=== PATIENT | female | born 1990 | race Two or more races ===

== ENCOUNTER 2019-07-14 04:03 | Inpatient (IN) | payer OTHER, SELFPAY ==
[~2019-07-14] VITALS: Ht 157.5 cm; Wt 53.1 kg
--- NOTE | 2019-07-14 04:10 | NUR ---
PT TOO TREMULOUS IN TRIAGE FOR EKG
[2019-07-14] MEDS ORDERED: LORazepam 2 MG/ML, 1ML ONE (04:18)
[2019-07-14] MEDS ORDERED: ONDANSETRON 2MG/ML, 2ML ONE (04:18)
--- NOTE | 2019-07-14 04:28 | NUR ---
Pt presents to ed c/o "im just not feeling well, i think i have alcohol poisoning or something." Pt c/o diffuse abd pain and nausea. States she drinks approximately 1/2 a pint a day of hard etoh. Pt denies any blood in stool or in emesis. Denies any relevent med hx. All monitoring applied. Iv initiated and medicated per nov.
[2019-07-14] MEDS ORDERED: SODIUM CHLORIDE 0.9% 1,000ML IVBOLUS ONE ×2 (04:30→05:30)
[2019-07-14] MEDS ORDERED: LORazepam 2 MG/ML, 1ML IVPush ONE ×2 (04:30→05:00)
[2019-07-14] MEDS ORDERED: ONDANSETRON 2MG/ML, 2ML IVPush ONE (04:30)
[2019-07-14 04:56] LABS: MEAN CORPUSCULAR HEMOGLOBIN 32.5 pg (27.0-34.8); MEAN CORPUSCULAR HGB CONC 32.4 g/dL (32.4-35.8); MEAN CORPUSCULAR VOLUME 100.2 fL (80-100); MEAN PLATELET VOLUME 9.3 fL (7.4-10.4); PLATELET COUNT 301 x10^3/uL (130-400); RED BLOOD COUNT 4.54 x10^6/uL (3.82-5.3); RED CELL DISTRIBUTION WIDTH 14.2 % (9.6-15.2)
[2019-07-14 05:07] LABS: ALBUMIN 4.6 g/dL (3.4-5.0); CALCIUM 8.7 mg/dL (8.5-10.1); CHLORIDE 103 mmol/L (98-107)
[2019-07-14 05:10] LABS: ALANINE AMINOTRANSFERASE 91 U/L (12-78); SALICYLATE LEVEL 2.1 mg/dL (2.8-20.0)
[2019-07-14 05:12] LABS: ALKALINE PHOSPHATASE 104 U/L (45-117); BILIRUBIN,TOTAL 0.6 mg/dL (0.2-1.0); TOTAL PROTEIN 9.4 g/dL (6.4-8.2)
[2019-07-14 05:17] LABS: ANION GAP 22 mmol/L (5-15)
[2019-07-14 05:41] LABS: BASOPHILS % (AUTO) 0 % (0-1); EOSINOPHILS # (AUTO) 0.01 x10^3/uL (0-0.4); EOSINOPHILS % (AUTO) 0 % (1-7); LYMPHOCYTES # (AUTO) 0.38 x10^3/uL (1-3.4); LYMPHOCYTES % (AUTO) 2 % (22-44); MD SCAN; MONOCYTES # (AUTO) 0.23 x10^3/uL (0.2-0.8); MONOCYTES % (AUTO) 1 % (2-9); NEUTROPHILS # (AUTO) 22.81 x10^3/uL (1.8-6.8); NEUTROPHILS % (AUTO) 97 % (42-75)
--- NOTE | 2019-07-14 05:54 | NUR ---
Pt prompted for ua. States not able to at this time. No other immediate needs.
[2019-07-14] MEDS ORDERED: CEFTRIAXONE PMX 1GM/50ML 50 ML ONE (06:16)
[2019-07-14] MEDS ORDERED: CEFTRIAXONE PMX 1GM/50ML 50 ML IV ONE (06:30)
[2019-07-14] MEDS ORDERED: OMNIPAQUE 350 MG/ML, 100ML BOTTLE ONE (06:45)
[2019-07-14 06:46] LABS: MICROSCOPIC AUTO
[2019-07-14 06:47] LABS: CULTURE INDICATED? YES
--- NOTE | 2019-07-14 06:52 | NUR ---
Pt report to Ольга stallworth.
[2019-07-14 06:53] LABS: AMPHETAMINE SCREEN, URINE Negative (Negative); BARBITURATE SCREEN, URINE Negative (Negative); BENZODIAZEPINE SCREEN, URINE Negative (Negative); CANNABINOID SCREEN, URINE Negative (Negative); COCAINE SCREEN, URINE Negative (Negative); METHADONE SCREEN, URINE Negative (Negative); OPIATE SCREEN, URINE Negative (Negative)
--- NOTE | 2019-07-14 07:04 | NUR ---
REPORT TAKEN FROM CHAU DOVE. PT RESTING ON VICTOR MANUEL. LUPIS. VSS. MEDICATED PER EMAR. DENIES NEEDS. CALL LIGHT IN REACH.
[2019-07-14] MEDS: THIAMINE 100 MG in SODIUM CHLORIDE 0.9% 50 ML IV SCH (07:05)
[2019-07-14 07:11] LABS: ACETONE, SERUM Large (80mg/dL) mg/dL (Negative)
[2019-07-14] MEDS ORDERED: D5%-0.45% NACL 1,000 ML IV ONE (07:30)
[2019-07-14] MEDS ORDERED: SODIUM CHLORIDE FLUSH 10ML SYR IVF PRN (07:30)
[2019-07-14 07:40] VITALS: BP 167/55
--- NOTE | 2019-07-14 07:43 | NUR ---
PT MEDICATED PER EMAR. RESTING ON GURNEY. NADN. EKG PERFORMED. VSS.
--- NOTE | 2019-07-14 08:05 | NUR ---
REPORT GIVEN TO CHAU YOUNG.
[2019-07-14 08:55] VITALS: BP 134/90
[2019-07-14] MEDS ORDERED: LORazepam 2 MG/ML, 1ML IV PRN ×5 (10:00)
[2019-07-14] MEDS ORDERED: LORazepam 1MG TABLET PO PRN ×2 (10:00)
[2019-07-14] MEDS ORDERED: LORazepam 0.5MG TABLET PO PRN (10:00)
[2019-07-14 11:28] VITALS: BP 117/80
[2019-07-14] MEDS: SODIUM BICARBONATE 8.4% 100 MEQ in DEXTROSE 5% 1,000 ML IV SCH ×2 (11:31→18:17)
[2019-07-14] MEDS ORDERED: ONDANSETRON 2MG/ML, 2ML IVPush PRN (12:30)
[2019-07-14] MEDS ORDERED: LABETALOL 5MG/ML, 20ML IVPush PRN (12:30)
[2019-07-14] MEDS ORDERED: ONDANSETRON ODT 4 MG PO PRN (12:30)
[2019-07-14] MEDS: POTASSIUM CHLORIDE 20 MEQ, MAGNESIUM SULFATE 1 GM, FOLIC ACID 1 MG, THIAMINE 200 MG, MV... IV SCH (13:01)
[2019-07-14 13:12] LABS: FREE T4 (FREE THYROXINE) 0.85 ng/dL (0.76-1.46)
[2019-07-14 13:49] VITALS: BP 121/77
[2019-07-14] MEDS ORDERED: ENOXAPARIN 30 MG/0.3 ML SQ SCH (17:30)
[2019-07-14 18:18] VITALS: BP 101/65
[2019-07-14 19:27] VITALS: BP 106/68
[2019-07-14 21:55] LABS: ANION GAP 6 mmol/L (5-15); CALCIUM 8.3 mg/dL (8.5-10.1); CHLORIDE 104 mmol/L (98-107)
[2019-07-14 22:07] LABS: MEAN CORPUSCULAR HEMOGLOBIN 32.3 pg (27.0-34.8); MEAN CORPUSCULAR HGB CONC 33.3 g/dL (32.4-35.8); MEAN CORPUSCULAR VOLUME 96.8 fL (80-100); MEAN PLATELET VOLUME 8.8 fL (7.4-10.4); PLATELET COUNT 168 x10^3/uL (130-400); RED BLOOD COUNT 3.59 x10^6/uL (3.82-5.3); RED CELL DISTRIBUTION WIDTH 14.5 % (9.6-15.2)
[2019-07-14 22:35] LABS: BASOPHILS # (AUTO) 0.02 x10^3/uL (0-0.1); BASOPHILS % (AUTO) 0 % (0-1); EOSINOPHILS % (AUTO) 0 % (1-7); LYMPHOCYTES # (AUTO) 0.69 x10^3/uL (1-3.4); LYMPHOCYTES % (AUTO) 10 % (22-44); MD SCAN; MONOCYTES # (AUTO) 0.27 x10^3/uL (0.2-0.8); MONOCYTES % (AUTO) 4 % (2-9); NEUTROPHILS # (AUTO) 6.24 x10^3/uL (1.8-6.8); NEUTROPHILS % (AUTO) 87 % (42-75)
[2019-07-15 01:07] VITALS: BP 102/65
[2019-07-15] MEDS: SODIUM BICARBONATE 8.4% 100 MEQ in DEXTROSE 5% 1,000 ML IV SCH (02:19)
[2019-07-15 05:16] LABS: ALBUMIN 3.4 g/dL (3.4-5.0); ANION GAP 7 mmol/L (5-15); CHLORIDE 102 mmol/L (98-107)
[2019-07-15 05:18] LABS: BASOPHILS # (AUTO) 0.01 x10^3/uL (0-0.1); BASOPHILS % (AUTO) 0 % (0-1); EOSINOPHILS # (AUTO) 0.03 x10^3/uL (0-0.4); EOSINOPHILS % (AUTO) 1 % (1-7); LYMPHOCYTES # (AUTO) 1.02 x10^3/uL (1-3.4); LYMPHOCYTES % (AUTO) 18 % (22-44); MD NO; MEAN CORPUSCULAR HEMOGLOBIN 32.8 pg (27.0-34.8); MEAN CORPUSCULAR HGB CONC 33.9 g/dL (32.4-35.8); MONOCYTES # (AUTO) 0.36 x10^3/uL (0.2-0.8); MONOCYTES % (AUTO) 6 % (2-9); NEUTROPHILS # (AUTO) 4.31 x10^3/uL (1.8-6.8); NEUTROPHILS % (AUTO) 75 % (42-75); PLATELET COUNT 149 x10^3/uL (130-400); RED BLOOD COUNT 3.44 x10^6/uL (3.82-5.3); RED CELL DISTRIBUTION WIDTH 14.4 % (9.6-15.2)
[2019-07-15 05:30] LABS: ALANINE AMINOTRANSFERASE 54 U/L (12-78); ALKALINE PHOSPHATASE 61 U/L (45-117); BILIRUBIN,TOTAL 0.6 mg/dL (0.2-1.0); CREATININE 0.61 mg/dL (0.55-1.02); TOTAL PROTEIN 6.4 g/dL (6.4-8.2)
[2019-07-15] MEDS ORDERED: POTASSIUM CHLORIDE 20 MEQ TAB.ER.PRT PO ONE ×2 (06:30→11:30)
[2019-07-15] MEDS ORDERED: POTASSIUM PHOSPHATE 44 MEQ in SODIUM CHLORIDE 0.9% 500 ML IV ONE (06:30)
[2019-07-15 07:30] VITALS: BP 104/70
[2019-07-15] MEDS: THIAMINE 100 MG in SODIUM CHLORIDE 0.9% 50 ML IV SCH (10:17)
[2019-07-15] MEDS: PANTOPRAZOLE 40 MG IV IVPush SCH (10:17)
[2019-07-15] MEDS: POTASSIUM CHLORIDE 20 MEQ, MAGNESIUM SULFATE 1 GM, FOLIC ACID 1 MG, THIAMINE 200 MG, MV... IV SCH (13:04)
[2019-07-15 13:15] VITALS: BP 133/66
[2019-07-15] MEDS: ENOXAPARIN 40 MG/0.4 ML SQ SCH (17:10)
[2019-07-15 19:14] VITALS: BP 99/67
[2019-07-16 01:43] VITALS: BP 122/80
[2019-07-16 05:35] LABS: MEAN CORPUSCULAR HEMOGLOBIN 32.8 pg (27.0-34.8); MEAN CORPUSCULAR HGB CONC 33.7 g/dL (32.4-35.8); MEAN CORPUSCULAR VOLUME 97.4 fL (80-100); MEAN PLATELET VOLUME 9.3 fL (7.4-10.4); PLATELET COUNT 141 x10^3/uL (130-400); RED BLOOD COUNT 3.58 x10^6/uL (3.82-5.3); RED CELL DISTRIBUTION WIDTH 14.3 % (9.6-15.2)
[2019-07-16 05:42] LABS: CHLORIDE 106 mmol/L (98-107)
[2019-07-16 05:48] LABS: ALANINE AMINOTRANSFERASE 61 U/L (12-78); ALBUMIN 3.5 g/dL (3.4-5.0); ALKALINE PHOSPHATASE 69 U/L (45-117); ANION GAP 4 mmol/L (5-15); BILIRUBIN,TOTAL 0.6 mg/dL (0.2-1.0); CALCIUM 8.7 mg/dL (8.5-10.1); CREATININE 0.64 mg/dL (0.55-1.02); TOTAL PROTEIN 6.9 g/dL (6.4-8.2)
[2019-07-16 06:06] LABS: BASOPHILS # (AUTO) 0.03 x10^3/uL (0-0.1); BASOPHILS % (AUTO) 1 % (0-1); EOSINOPHILS # (AUTO) 0.04 x10^3/uL (0-0.4); EOSINOPHILS % (AUTO) 1 % (1-7); LYMPHOCYTES # (AUTO) 1.57 x10^3/uL (1-3.4); LYMPHOCYTES % (AUTO) 38 % (22-44); MD SCAN; MONOCYTES # (AUTO) 0.38 x10^3/uL (0.2-0.8); MONOCYTES % (AUTO) 9 % (2-9); NEUTROPHILS # (AUTO) 2.13 x10^3/uL (1.8-6.8); NEUTROPHILS % (AUTO) 51 % (42-75)
[2019-07-16] MEDS ORDERED: POTASSIUM PHOSPHATE 44 MEQ in SODIUM CHLORIDE 0.9% 500 ML IV ONE (07:30)
[2019-07-16 07:40] VITALS: BP 133/92
[2019-07-16] MEDS: PANTOPRAZOLE 40 MG IV IVPush SCH (08:17)
[2019-07-16 14:00] VITALS: BP 105/71
[2019-07-16] MEDS: POTASSIUM CHLORIDE 20 MEQ, MAGNESIUM SULFATE 1 GM, FOLIC ACID 1 MG, THIAMINE 200 MG, MV... IV SCH (17:02)
[2019-07-16] MEDS: ENOXAPARIN 40 MG/0.4 ML SQ SCH (17:04)
[2019-07-16 20:09] VITALS: BP 115/78
[2019-07-17 01:30] VITALS: BP 118/86
[2019-07-17 06:46] LABS: BASOPHILS # (AUTO) 0.03 x10^3/uL (0-0.1); BASOPHILS % (AUTO) 1 % (0-1); EOSINOPHILS # (AUTO) 0.11 x10^3/uL (0-0.4); EOSINOPHILS % (AUTO) 2 % (1-7); LYMPHOCYTES # (AUTO) 1.36 x10^3/uL (1-3.4); LYMPHOCYTES % (AUTO) 25 % (22-44); MD NO; MEAN CORPUSCULAR HEMOGLOBIN 32.4 pg (27.0-34.8); MEAN CORPUSCULAR HGB CONC 33.2 g/dL (32.4-35.8); MEAN CORPUSCULAR VOLUME 97.4 fL (80-100); MEAN PLATELET VOLUME 9.2 fL (7.4-10.4); MONOCYTES # (AUTO) 0.33 x10^3/uL (0.2-0.8); MONOCYTES % (AUTO) 6 % (2-9); NEUTROPHILS # (AUTO) 3.56 x10^3/uL (1.8-6.8); NEUTROPHILS % (AUTO) 66 % (42-75); PLATELET COUNT 170 x10^3/uL (130-400); RED BLOOD COUNT 3.86 x10^6/uL (3.82-5.3); RED CELL DISTRIBUTION WIDTH 14.3 % (9.6-15.2)
[2019-07-17 06:57] LABS: ALANINE AMINOTRANSFERASE 83 U/L (12-78); ALBUMIN 3.8 g/dL (3.4-5.0); ANION GAP 7 mmol/L (5-15); CALCIUM 8.8 mg/dL (8.5-10.1); CHLORIDE 105 mmol/L (98-107)
[2019-07-17 07:00] VITALS: BP 117/79
[2019-07-17] MEDS ORDERED: FOLI-17 PO (07:18)
[2019-07-17] MEDS ORDERED: THIA100T67 PO (07:18)
[2019-07-17 07:24] LABS: ALKALINE PHOSPHATASE 82 U/L (45-117); BILIRUBIN,TOTAL 0.6 mg/dL (0.2-1.0); CREATININE 0.62 mg/dL (0.55-1.02); TOTAL PROTEIN 7.5 g/dL (6.4-8.2)
[2019-07-17] MEDS: PANTOPRAZOLE 40 MG IV IVPush SCH (08:00)
[2019-07-17] MEDS ORDERED: FLU VACC QS2019-20 36MOS UP/PF 0.5 ML IM-VACC ONE (08:30)
== END 2019-07-17 09:17 | disposition home or self-care (01) | DRG 897 ==
LOC: ED 05:19 → EDIP 07:30 → 4WST 08:28 → DCLOUNGE 07-17 09:14
PROVIDERS: ADMIT Family Medicine; ATTEND Hospitalist
DX: F10.239 Alcohol dependence with withdrawal, unspecified (principal); E87.2 Acidosis; R65.10 Systemic inflammatory response syndrome (SIRS) of non-infectious origin without acute organ dysfunction; F17.210 Nicotine dependence, cigarettes, uncomplicated; F41.9 Anxiety disorder, unspecified; E87.6 Hypokalemia; E83.39 Other disorders of phosphorus metabolism; D75.89 Other specified diseases of blood and blood-forming organs; F10.229 Alcohol dependence with intoxication, unspecified
CPT/HCPCS: 36415; 84145; 96365; 96375; 99291; J7121; 71045; 74177; 80048; 80053; 80307; 81001; 82010; 82607; 82800; 82962; 83605; 83690; 83735; 84100; 84439; 84443; 84703; 85025; 87040; 87086; 90686; 93005; G0378; J0696; J1650; J2405; J3411; J3475; J3480; J7070; Q9967; C9113; J2060; J7030; J7040

== ENCOUNTER 2020-12-14 09:32 | Emergency (ER) | payer MEDICAID, OTHER ==
[~2020-12-14] VITALS: Ht 157.5 cm; Wt 50.0 kg
[~2020-12-14 09:32] MED LIST: FOLI1TAB32 PO; THIA100T67 PO
--- NOTE | 2020-12-14 10:55 | NUR ---
FIDENCIO VAZQUEZ COMPLETED. PT RESTING WITH EYES CLOSED
[2020-12-14 11:02] VITALS: BP 121/91
--- NOTE | 2020-12-14 11:16 | NUR ---
REMAINS RESTING WITH EYES CLOSED, BREATHING EVEN AND UNLABORED. NO DISTRESS
--- NOTE | 2020-12-14 11:45 | NUR ---
PT AMBULATED TO BATHROOM WITHOUT DIFFICULTY. A&O. DISCUSSED DISCHARGE AND PT REQUESTED BUS PASS
== END 2020-12-14 11:55 | disposition home or self-care (01) ==
LOC: ED 11:40
DX: F10.229 Alcohol dependence with intoxication, unspecified (principal); Y90.0 Blood alcohol level of less than 20 mg/100 ml
CPT/HCPCS: 99283